=== PATIENT | male | born 1960 | race Caucasian/White ===

== ENCOUNTER → 2021-12-10 11:05 | Outpatient (BNVA) | payer MEDICARE, SELFPAY | PROVIDERS: Visit Provider Surgery | DX: K42.9 Umbilical hernia without obstruction or gangrene (principal) | CPT/HCPCS: 99203 ==

== ENCOUNTER 2022-01-09 06:42 | Day surgery (SDC) | payer MEDICARE, SELFPAY ==
[2022-01-08 14:27] VITALS: BMI 39.7
[2022-01-09] VITALS (18 sets, daily range): BP systolic 105–198; BP diastolic 69–138; PULSE 80–91; RESP 13–28; TEMP 36.2–36.4; O2SAT 88–98
--- NOTE | 2022-01-09 07:09 | W.PM.OPSUD ---
Surgery/Procedure H&P Update DATE OF PROCEDURE: January 09, 2022 DATE H&P PERFORMED: 12/10/21 PREOP DIAGNOSIS: umbilical hernia PLANNED PROCEDURE: Operation Date: 01/09/22 08:10 Proposed Procedures p 72280 lap umbilical hernia repair with mesh K42.9(Not Applicable) - Remi Aguilera DO
[2022-01-09] MEDS: sodium chloride 0.9% 1,000 ML 30 ML IV (07:25)
[2022-01-09 07:27] LABS: Glucose Point of Care 139 mg/dL (70-110)
[2022-01-09] MEDS: ceFAZolin 2,000 MG in sodium chloride 0.9% (plus) 50 ML 100 MG IV (08:26)
--- NOTE | 2022-01-09 08:42 | P.ANESASSM_ITS ---
Pre-Anesthetic Assessment Height/Weight: Height 1.8 m Weight 129.274 kg Temp Pulse Resp BP Pulse Ox O2 Del Method 97.1 F L 86 18 119/81 94 01/09/22 07:07 01/09/22 07:07 01/09/22 07:07 01/09/22 07:07 01/09/22 07:07 01/09/22 07:07 Preop Diagnosis: umbilical hernia Operation Date: 01/09/22 08:10 Proposed Procedures p 07917 lap umbilical hernia repair with mesh K42.9(Not Applicable) - Remi Aguilera DO Familial anesthetic complications: none Was Beta Nolan taken within 24 hours: N/A Was Clonidine taken within 24 hours: N/A Last intake: Intake Last Liquid Date 01/09/22 Last Liquid Time 04:00 Last Solid Date 01/08/22 Last Solid Time 23:00 Social No alcohol and No tobacco Exam alert, oriented x 3, clear to auscultation bilaterally and regular rate & rhythm Airway Submandibular: within normal limits Cervical ROM: within normal limits Mallampati: Class II Dentition: false CV/HEM Hypertension GI Gastroesophageal Reflux Disease Metabolic Diabetes Mellitus, Hyperlipidemia and Morbid Obesity Anesthetic Plan ASA status: 3 Anesthesia: General Medications/Allergies Home Medications Medication Instructions Recorded Confirmed Last Taken Type ascorbic acid (vitamin C) 1,000 mg 1 g PO Q6H 12/10/21 01/09/22 1 Day Ago History capsule ~01/08/22 atorvastatin 40 mg tablet 40 mg PO DAILY 12/10/21 01/09/22 1 Day Ago History ~01/08/22 cinnamon bark 500 mg capsule 500 mg PO DAILY 12/10/21 01/09/22 1 Day Ago History (Cinnamon) ~01/08/22 cyclobenzaprine 10 mg tablet 10 mg PO TID 12/10/21 01/09/22 1 Day Ago History ~01/08/22 furosemide 40 mg tablet (Lasix) 40 mg PO DAILY 12/10/21 01/09/22 1 Day Ago History ~01/08/22 glimepiride 4 mg tablet 4 mg PO DAILY 12/10/21 01/09/22 1 Day Ago History ~01/08/22 losartan 25 mg tablet 25 mg PO DAILY 12/10/21 01/08/22 Unknown History omeprazole 40 mg capsule,delayed 40 mg PO DAILY 12/10/21 01/08/22 Unknown History release potassium chloride 20 mEq oral 20 meq PO DAILY 12/10/21 01/08/22 Unknown History packet (Klor-Con) hydrocodone 5 mg-acetaminophen 325 325 tab PO 2XD PRN Pain (Scale 01/08/22 01/09/22 01/09/22 04:30 History mg tablet Score 4-6) ibuprofen 800 mg tablet 800 mg PO 2XD PRN Pain, Moderate 01/08/22 01/09/22 1 Day Ago History ~01/08/22 ondansetron HCl 8 mg tablet 8 mg PO 2XD PRN Nausea 01/08/22 01/08/22 Unknown History Allergies Allergy/AdvReac Type Severity Reaction Status Date / Time No Known Allergies Allergy Verified 01/09/22 07:16 [facility] Anesthesia Medical History Cholelithiases Chronic back pain Constipation Edema of lower extremity GERD (gastroesophageal reflux disease) Hypertension Type 2 diabetes mellitus Surgical History History of knee surgery Hx of varicose vein stripping Social History Smoking and tobacco status: former smoker Data Anesthesia Cardiac Studies: No Data to Display
[2022-01-09] MEDS: fentaNYL 50 mcg/mL INJ 2mL IVP (10:11)
[2022-01-09] MEDS: ipratropium-albuterol 3 mL Neb (10:22)
[2022-01-09] MEDS: HYDROcodone-acetaminophen 7.5-325 mg Tablet 1 TAB PO (10:45)
--- NOTE | 2022-01-09 11:43 | P.OP_ITS ---
Operative Report Date of procedure: January 09, 2022 Pre-op diagnosis: Preop Diagnosis umbilical hernia Post-op diagnosis: same Procedure done: Laparoscopic repair of umbilical hernia with mesh Implants: Ventral light round mesh Specimens removed/disposition: Hernia sac Surgeon: Dr. Remi Aguilera DO Anesthesia: General Estimated blood loss (mL): 5 Complications: None apparent Brief History: This is a very pleasant 61-year-old gentleman with an umbilical hernia. Laparoscopic repair with mesh is indicated. The risks and benefits of procedure were explained and documented. Procedure: Patient was wheeled into the operative room and placed on the OR table in a supine position. Abdomen was inspected prepped and draped in usual sterile fashion. Time-out was performed and all present were in agreement. A 15 blade scalp was used to make a 5 millimeter incision left upper quadrant. A Veress needle was placed into the incision and intra-abdominal insufflation was brought to 15 millimeters of mercury. A 12 millimeter trocar was placed into the left lower quadrant. The energy but device was then used to cut out the hernia sac. A round ventral light mesh was placed into the abdomen and brought up through the umbilicus using an the Wan-Shaggy. The mesh was then tacked in place in a double crown fashion. The skeleton of the mesh was removed via the left lower quadrant. The hernia sac was then removed from the abdomen via the left lower quadrant. The left lower quadrant port site was closed with an 0 Vicryl s uture in a Wan-Shaggy in a [id number] fashion. Incisions were closed with 4 O Vicryl in a subcuticular interrupted fashion. Skin glue was applied. A dressing that included cotton balls and a Tegaderm was placed over the umbilicus. Patient tolerated the procedure well.
--- NOTE | 2022-01-09 12:20 | PC.NURSE ---
PT'S LUNGS ARE CLEAR SHARON, PT HAD BEEN SITTING ON SIDE OF BED FOR LAST 30 MIN ARM RESTING ON BED SIDE TABLE. PAIN PILL GIVEN AT 1145 AND PAIN RATED 2 POINTS LOWER NO. I DISCUSSED OXYGEN SATURATION LEVELS WITH DR WYATT, HE EVALUATED AND SPOKE TO PT, TOLD HIM HE WAS CLEARED TO GO HOME. PT STATED HE WAS NOT READY TO DISCHARGE YET. PT IS DRESSING NOW AND WILL TELL ME HOW HE FEELS AFTER THAT.
--- NOTE | 2022-01-09 15:37 | ANE.PACU2 ---
Inpatient post-anesthesia follow up: Airway intact: Yes Vital signs: Temperature 97.6 F Pulse Rate 83 Respiratory Rate 18 Blood Pressure 146/83 Pulse Oximetry 92 Oxygen Delivery Me thod Room Air Oxygen Flow Rate 3 Fraction of Inspir ed Oxygen Hydration adequate: Yes Nausea and vomiting: No Pain level: 3 Mental status: Baseline
== END 2022-01-09 13:10 | disposition home or self-care (01) ==
PROVIDERS: Visit Provider Surgery
PROC: 0WQF4ZZ Repair Abdominal Wall, Percutaneous Endoscopic Approach (ICD-10-PCS; CPT 49652; principal; 2022-01-09 08:10)
DX: K42.9 Umbilical hernia without obstruction or gangrene (principal); I10 Essential (primary) hypertension; K21.9 Gastro-esophageal reflux disease without esophagitis; E11.9 Type 2 diabetes mellitus without complications; E78.5 Hyperlipidemia, unspecified; E66.01 Morbid (severe) obesity due to excess calories; Z68.39 Body mass index [BMI] 39.0-39.9, adult; G89.29 Other chronic pain; M54.9 Dorsalgia, unspecified; Z79.891 Long term (current) use of opiate analgesic; Z87.891 Personal history of nicotine dependence
CPT/HCPCS: 49652; 36416; 82962; 88302; C1781; J0690; J1170; J2250; J2405; J2704; J2710; J3010; J3490; J7030

== ENCOUNTER → 2022-01-31 11:15 | Outpatient (BNVA) | payer MEDICARE, SELFPAY | PROVIDERS: PCP Family Medicine; Visit Provider Surgery | DX: Z98.890 Other specified postprocedural states (principal); Z87.19 Personal history of other diseases of the digestive system | CPT/HCPCS: 99024 ==